=== PATIENT | male | born 1980 | race Hispanic/Latino ===

== ENCOUNTER 2016-08-24 19:29 | Emergency (ER) | payer SELFPAY | END 2016-08-24 19:46 | disposition home or self-care (01) | LOC: BURERS 19:29 | DX: J01.90 Acute sinusitis, unspecified (principal); J30.1 Allergic rhinitis due to pollen; F17.210 Nicotine dependence, cigarettes, uncomplicated | CPT/HCPCS: 99283 ==

== ENCOUNTER 2016-09-06 20:39 | Emergency (ER) | payer SELFPAY ==
[2016-09-06] MEDS ORDERED: Meclizine HCl 25 MG TAB ONE (21:38)
== END 2016-09-06 21:58 | disposition home or self-care (01) ==
LOC: BURERS 20:39
DX: R42 Dizziness and giddiness (principal); F17.210 Nicotine dependence, cigarettes, uncomplicated